=== PATIENT | female | born 1945 | race Caucasian/White ===

== ENCOUNTER → 2016-08-23 | Outpatient (CLI) | payer MEDICARE ==
[~2016-08-23] MED LIST: ASPIRIN E.C. 8181 MG PO; CALCIUM + D 6001 TA1 PO; CARDI-OMEGA1000 MG PO; DALIRESP500 MCG PO; EFFEXOR 75M75 MG/TAB PO; FORADIL IH; FOSAMAX 70MG TA70 MG PO; GLUCOSAMINE & C1 TA1 PO; ISOPTIN SR240 MG PO; METAMUCIL CLEAR1 POW PO; MICARDIS 40MG40 MG PO; MIRALAX119G PO; MULTIPLE VITAMI1 CAP PO; PHARMASSURE ZIN50 MG PO; SPIRIVA INH IH; VALIUM2 MG PO; VITAMIN C BUFF500 MG PO; VITAMIN D1000 IU PO; ZITHROMAX 250M250 MG PO; [UNRECOGNIZED DRUG - OTHER]
== END ==
LOC: MC.RAD 08:26
DX: R92.1 Mammographic calcification found on diagnostic imaging of breast (principal)

== ENCOUNTER → 2017-02-17 | Outpatient (CLI) | payer MEDICARE | LOC: MC.RAD 09:45 | DX: Z12.31 Encounter for screening mammogram for malignant neoplasm of breast (principal); N63.22 Unspecified lump in the left breast, upper inner quadrant ==

== ENCOUNTER → 2017-02-25 | Outpatient (CLI) | payer MEDICARE | LOC: MC.RAD 10:30 | DX: N63.22 Unspecified lump in the left breast, upper inner quadrant (principal); N64.89 Other specified disorders of breast ==

== ENCOUNTER → 2017-03-17 | Outpatient (CLI) | payer MEDICARE | LOC: MC.RAD 09:48 | DX: N63.20 Unspecified lump in the left breast, unspecified quadrant (principal) ==

== ENCOUNTER → 2018-02-28 | Outpatient (CLI) | payer MEDICARE | LOC: MC.RAD 11:12 | DX: Z12.31 Encounter for screening mammogram for malignant neoplasm of breast (principal) ==

== ENCOUNTER 2019-01-03 08:27 | Day surgery (SDC) | payer MEDICARE ==
[~2019-01-03] VITALS: Ht 165.2 cm; Wt 74.5 kg
[2019-01-03] VITALS (11 sets, daily range): BP systolic 105–152; BP diastolic 45–70; PULSE 61–69; TEMP 97.8
[~2019-01-03 08:27] MED LIST changes: -CARDI-OMEGA1000 MG PO; +MASON NATURAL1200 MG PO; +MIRALAX PA17 GM/Dose PO; -MIRALAX119G PO
[2019-01-03 09:52] LABS: HEMATOCRIT 40.7 % (37.0-47.0); HEMOGLOBIN 13.5 g/dl (12.5-16.0); MEAN CELL VOLUME 91 fl (80.0-100.0); MEAN CORPUSCULAR HEMOGLOBIN 30 pg (27.0-31.0); MEAN CORPUSCULAR HGB CONC 33 g/dl (33.0-37.0); MEAN PLATELET VOLUME 9.6 fl (7.4-10.4); PLATELET COUNT 302 K/mm3 (130-400); RED BLOOD COUNT 4.48 M/mm3 (4.10-5.30); REDCELL DISTRIBUTION WIDTH-CV 13.2 % (11.5-14.5)
[2019-01-03 09:53] LABS: CALCIUM 9.8 mg/dL (8.4-10.2); CREATININE, serum 0.84 (0.52-1.25); POTASSIUM 4.2 mmol/L (3.4-5.0)
[2019-01-03] MEDS ORDERED: PRIL40 PO (10:03)
[2019-01-03] MEDS ORDERED: METAMUCIL3.4 GM/DOS PO (10:03)
[2019-01-03] MEDS ORDERED: EFFEXOR XR37.5 MG/CA PO (10:05)
[2019-01-03 10:06] LABS: PROTHROMBIN TIME 11.8 SECONDS (9.7-12.8)
[2019-01-03] MEDS ORDERED: HYPERSAL 4 ML4 M1 IH (10:06)
[2019-01-03] MEDS ORDERED: TRELEGY ELLIPT1 EACH IH (10:07)
[2019-01-03] MEDS ORDERED: DALIRESP500 MCG PO (10:09)
[2019-01-03] MEDS ORDERED: TIAZAC240 MG PO (10:09)
[2019-01-03] MEDS ORDERED: CALCIUM 600MG+D1 TAB PO (10:10)
--- NOTE | 2019-01-03 10:16 | NUR ---
Pt to procedure at this time.
--- NOTE | 2019-01-03 10:28 | NUR ---
ALL MEDICATIONS GIVEN VORB WITH MD. SEE MERGE FOR ALL MEDICATION ADMIN TIMES. SEE MERGE FOR ALL RASS ASSESSMENTS DURING AND POST PROCEDURE. POSITIVE BARBEAU'S TEST IN THE RIGHT WRIST, RADIAL PULSE +2. NITRO PASTE APPLIED PRIOR TO PROCEDURE, REFER TO EMAR.
--- NOTE | 2019-01-03 11:05 | NUR ---
Patient transported back to room 11 at this time. Patient hooked back up to monitoring equipment at this time, VS stable. Patient denies any pain at this time. Bedside report given to SALVATORE Maher. Visualized TR band with RN. TR band remains in place with 11 ml of air in the band. Cap refill <3 seconds. No oozing or hematoma noted at this time. Site soft and nontender around TR band. Denies any numbness or tingling at this time. Discussed importance of wrist restrictions with patient and spouse, no other concerns at this time. Bed in locked and lowest position, call light within reach.
--- NOTE | 2019-01-03 15:00 | NUR ---
Discharge instructions given to pt.Pt verbalizes understanding.INT removed,catheter tip intact.Pt escorted out via wheelchair by this nurse.
== END 2019-01-03 16:48 | disposition home or self-care (01) ==
LOC: COL.CAR 08:27
PROVIDERS: Internal Medicine Cardiovascular Disease
DX: R94.39 Abnormal result of other cardiovascular function study (principal); J44.9 Chronic obstructive pulmonary disease, unspecified; I10 Essential (primary) hypertension; K21.9 Gastro-esophageal reflux disease without esophagitis; Z90.89 Acquired absence of other organs; Z90.49 Acquired absence of other specified parts of digestive tract; Z90.710 Acquired absence of both cervix and uterus; Z88.6 Allergy status to analgesic agent; Z88.2 Allergy status to sulfonamides; Z88.1 Allergy status to other antibiotic agents; Z88.5 Allergy status to narcotic agent; Z79.899 Other long term (current) drug therapy; Z87.891 Personal history of nicotine dependence; Z82.49 Family history of ischemic heart disease and other diseases of the circulatory system; Z82.5 Family history of asthma and other chronic lower respiratory diseases
CPT/HCPCS: C1769; J1644; J2250; J2405; J3010; Q9967

== ENCOUNTER → 2019-06-19 | Outpatient (CLI) | payer MEDICARE ==
[~2019-06-19] MED LIST changes: +CALCIUM 600MG+D1 TAB PO; +EFFEXOR XR37.5 MG/CA PO; +HYPERSAL 4 ML4 M1 IH; +METAMUCIL3.4 GM/DOS PO; +PRIL40 PO; +TIAZAC240 MG PO; +TRELEGY ELLIPT1 EACH IH
== END ==
LOC: MC.RAD 06-12 11:30
DX: Z12.31 Encounter for screening mammogram for malignant neoplasm of breast (principal); N63.10 Unspecified lump in the right breast, unspecified quadrant

== ENCOUNTER → 2019-06-26 | Outpatient (CLI) | payer MEDICARE | LOC: MC.RAD 13:00 | DX: N60.01 Solitary cyst of right breast (principal) ==

== ENCOUNTER → 2020-08-07 | Outpatient (CLI) | payer MEDICARE | LOC: MC.RAD 06-19 11:30 | DX: Z12.31 Encounter for screening mammogram for malignant neoplasm of breast (principal) ==

== ENCOUNTER → 2020-10-01 | Outpatient (CLI) | payer MEDICARE | LOC: COL.RAD 07:10 | DX: K21.9 Gastro-esophageal reflux disease without esophagitis (principal); J47.9 Bronchiectasis, uncomplicated; R68.89 Other general symptoms and signs | CPT/HCPCS: A9541 ==

== ENCOUNTER → 2021-01-20 | Outpatient (CLI) | payer MEDICARE | LOC: COL.VAS 01-16 14:15 | DX: R09.89 Other specified symptoms and signs involving the circulatory and respiratory systems (principal) ==

== ENCOUNTER → 2021-08-13 | Outpatient (CLI) | payer MEDICARE | LOC: MC.RAD 10:00 | DX: Z12.31 Encounter for screening mammogram for malignant neoplasm of breast (principal) ==